=== PATIENT | male | born 1950 | race Caucasian/White ===

== ENCOUNTER 2019-05-31 08:31 | Inpatient (IN) | payer MEDICARE, MEDICAID ==
[2019-05-31] MEDS ORDERED: Nitroglycerin 0.4 MG Tab.SL SL SCH (12:45)
--- NOTE | 2019-05-31 13:00 | PCM.HP ---
H&P History of Present Illness - General Date of Service: 05/31/19 Admit Problem/Dx: Admission Diagnosis/Problem Admission Diagnosis/Problem Bacteremia Source of Information: Patient, Family History Limitations: Reports: No Limitations - History of Present Illness Initial Comments - Free Text/Narative: Nisreen is a 68-year-old male with past medical history significant for hypertension, supraventricular tachycardia, cardiomyopathy. He initially had an ablation for symptomatic atrial fibrillation on 05/05/2019 along with implantation of a loop recorder. He presented with not feeling well for 4 to 5 days with dry cough, subjective fevers,chills and sinus congestion. He also reported severe back pain. He was admitted with diagnosis of viral syndrome on 05/16/2019. He spiked a fever of 100.2 on 05/18/2019 after which he had blood cultures done. Blood cultures were 2 out of 2 sets positive for MSSA. He was started on cefazolin. TONY showed aortic valve vegetation. MRI of the thoracic spine showed osteomyelitis and discitis of T9-T10. Orthopedics evaluated patient and did right knee irrigation and sampling, and fluid showed staph aureus. Patient was transferred here to finish course of IV antibiotics. Patient's EF on his most recent echo 05/24/2019 was less than 25% with moderate AR. On interview, patient reported shortness of breath, he said that his lower extremity edema is new and he never had in the past. He said that his swelling is especially worse on the right side. He reports no nausea, vomiting, abdominal pain. - Related Data Allergies/Adverse Reactions: Allergies Allergy/AdvReac Type Severity Reaction Status Date / Time No Known Allergies Allergy Verified 05/31/19 10:10 Home Medications: Home Meds Acetaminophen 1,000 mg PO Q6HR 09/01/16 [History] Allopurinol [Zyloprim] 300 mg PO DAILY 09/01/16 [History] Simvastatin [Zocor] 20 mg PO BEDTIME 09/01/16 [History] Venlafaxine [Effexor XR] 150 mg PO BID 09/01/16 [History] traZODone HCl [Trazodone HCl] 100 mg PO BEDTIME 09/01/16 [History] Amiodarone [Cordarone] 200 mg PO DAILY 05/31/19 [History] Aspirin [Ecotrin EC] 325 mg PO DAILY 05/31/19 [History] Carvedilol [Coreg] 25 mg PO BID 05/31/19 [History] Furosemide [Lasix] 20 mg PO DAILY 05/31/19 [History] Losartan [Cozaar] 25 mg PO DAILY 05/31/19 [History] Nitroglycerin [Nitrostat] 0.3 mg SL ASDIRECTED 05/31/19 [History] Olopatadine [Pataday 0.2% Ophth Soln] 1 drop EYEBOTH DAILY 05/31/19 [History] Omeprazole 20 mg PO BID 05/31/19 [History] Spironolactone [Aldactone] 25 mg PO DAILY 05/31/19 [History] Warfarin Sodium [Jantoven] 5 mg PO DAILY 05/31/19 [History] diphenhydrAMINE [Benadryl] 25 mg PO DAILY PRN 05/31/19 [History] traMADol [Ultram] 50 mg PO BID PRN 05/31/19 [History] Past Medical History HEENT History: Reports: Impaired Vision Cardiovascular History: Reports: Arrhythmia, Heart Murmur, High Cholesterol, Hypertension, Other (See Below) Other Cardiovascular History: was told her needed to have a stress test 2017 but had not completed Respiratory History: Reports: None Gastrointestinal History: Reports: Bowel Obstruction Musculoskeletal History: Reports: Back Pain, Chronic, Other (See Below) Other Musculoskeletal History: lower back pain Psychiatric History: Reports: Anxiety, Depression Dermatologic History: Reports: Psoriasis - Infectious Disease History Infectious Disease History: Reports: Other (See Below) Other Infectious Disease History: MSSA - Past Surgical History GI Surgical History: Reports: None Social & Family History - Family History Family Medical History: Noncontributory - Tobacco Use Smoking Status *Q: Former Smoker Used Tobacco, but Quit: Yes Month/Year Tobacco Last Used: 1982 - Caffeine Use Caffeine Use: Reports: Soda - Recreational Drug Use Recreational Drug Use: No H&P Review of Systems - Review of Systems: Review Of Systems: See Below Pulmonary: Reports: Shortness of Breath. Denies: Wheezing, Cough Cardiovascular: Reports: Edema. Denies: Chest Pain, Palpitations Gastrointestinal: Reports: No Symptoms Skin: Reports: No Symptoms Psychiatric: Reports: No Symptoms Neurological: Reports: No Symptoms Exam - Exam Exam: See Below - Vital Signs Weight: 101.514 kg - Exam General: Alert, Oriented, Cooperative, Mild Distress HEENT: Conjunctiva Clear Neck: Supple Lungs: Clear to Auscultation, Decreased Breath Sounds Cardiovascular: Irregular Rhythm, Tachycardia GI/Abdominal Exam: Normal Bowel Sounds, Soft, Non-Tender Extremities: Other (Significant edema extending to upper thighs. Extremities are cool to touch) Skin: Intact, Cool Neuro Extensive - Mental Status: Alert, Normal Mood/Affect Psychiatric: Alert, Normal Affect, Normal Mood Problem List Initiated/Reviewed/Updated: Yes Orders Last 24hrs: Active Orders 24 hr Category Date Time Status Patient Status [ADT] Routine ADT 05/31/19 12:34 Ordered Oxygen Therapy [RC] PRN Care 05/31/19 12:34 Ordered VTE/DVT Education [RC] PER UNIT ROUTINE Care 05/31/19 12:34 Ordered Vital Signs [RC] QSHIFT Care 05/31/19 12:34 Ordered Heart Healthy Diet [DIET] Diet 05/31/19 Dinner Ordered BASIC METABOLIC PANEL,BMP [CHEM] DAILY Lab 05/31/19 12:49 Ordered BASIC METABOLIC PANEL,BMP [CHEM] DAILY Lab 06/01/19 12:49 Ordered BASIC METABOLIC PANEL,BMP [CHEM] DAILY Lab 06/02/19 12:49 Ordered BASIC METABOLIC PANEL,BMP [CHEM] DAILY Lab 06/03/19 12:49 Ordered BASIC METABOLIC PANEL,BMP [CHEM] DAILY Lab 06/04/19 12:49 Ordered BASIC METABOLIC PANEL,BMP [CHEM] DAILY Lab 06/05/19 12:49 Ordered BASIC METABOLIC PANEL,BMP [CHEM] DAILY Lab 06/06/19 12:49 Ordered Acetaminophen [Tylenol Extra Strength] Med 05/31/19 18:00 Ordered 1,000 mg PO Q6HR Amiodarone [Cordarone] Med 06/01/19 09:00 Ordered 200 mg PO DAILY Aspirin [Ecotrin] Med 06/01/19 09:00 Ordered 325 mg PO DAILY Bumetanide [Bumex] Med 05/31/19 14:00 Ordered 1 mg PO BIDDIURETIC Furosemide [Lasix] Med 06/01/19 09:00 Ordered 20 mg PO DAILY Losartan [Cozaar] Med 06/01/19 09:00 Ordered 25 mg PO DAILY Nitroglycerin Med 05/31/19 12:45 Ordered 0.3 mg SL ASDIRECTED Olopatadine [Pataday 0.2% Ophth Soln] Med 06/01/19 09:00 Ordered 1 drop EYEBOTH DAILY Omeprazole Med 05/31/19 21:00 Ordered 20 mg PO BID Simvastatin [Zocor] Med 05/31/19 21:00 Ordered 20 mg PO BEDTIME Spironolactone [Aldactone] Med 06/01/19 09:00 Ordered 25 mg PO DAILY Venlafaxine [Venlafaxine HCl ER] Med 05/31/19 21:00 Ordered 150 mg PO BID allopurinoL [Zyloprim] Med 06/01/19 09:00 Ordered 300 mg PO DAILY carvediloL [Coreg] Med 05/31/19 21:00 Ordered 25 mg PO BID traMADol [Ultram] Med 05/31/19 12:37 Ordered 50 mg PO BID PRN traZODone Med 05/31/19 21:00 Ordered 100 mg PO BEDTIME Resuscitation Status Routine Resus Stat 05/31/19 12:34 Ordered Medication Orders Acetaminophen (Tylenol Extra Strength) 1,000 mg PO Q6HR [facility] Allopurinol (Zyloprim) 300 mg PO DAILY [facility] Amiodarone HCl (Cordarone) 200 mg PO DAILY [facility] Aspirin (Ecotrin) 325 mg PO DAILY [facility] Carvedilol (Coreg) 25 mg PO BID [facility] Furosemide (Lasix) 20 mg PO DAILY [facility] Losartan Potassium (Cozaar) 25 mg PO DAILY [facility] Non-Formulary Medication (Nitroglycerin) 0.3 mg SL ASDIRECTED [facility] Non-Formulary Medication (Olopatadine [Pataday 0.2% Oph Soln]) 1 drop EYEBOTH DAILY [facility] Non-Formulary Medication (Simvastatin [Zocor]) 20 mg PO BEDTIME [facility] Omeprazole (Omeprazole) 20 mg PO BID [facility] Spironolactone (Aldactone) 25 mg PO DAILY [facility] Tramadol HCl (Ultram) 50 mg PO BID PRN PRN Reason: Pain (severe 7-10) Trazodone HCl (Trazodone) 100 mg PO BEDTIME [facility] Venlafaxine HCl (Venlafaxine Hcl Er) 150 mg PO BID [facility] Assessment/Plan Comment:: Sepsis from high grade MSSA bacteremia/bacterial endocarditis/right prepatellar bursa seeding/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 Acute Hypoxemic Respiratory Failure Most likely due to fluid overload See below Acute on chronic systolic CHF We will continue current home medications We will add Bumex 1 mg twice daily, may need to start patient on IV diuresis A fib with RVR Patient continues to be tachycardic We will give patient diuresis, heart rate may slow down with improved volume status Coumadin Hyponatremia Monitor labs daily Weakness PT OT DVT prophylaxis Coumadin
[2019-05-31 13:41] LABS: ANION GAP 13.1; CHLORIDE,CL 90 mmol/L (101-111); SODIUM,NA 126 mmol/L (135-145)
[2019-05-31] MEDS ORDERED: Bumetanide 1 MG Tab PO SCH (14:00)
[2019-05-31] MEDS: Furosemide 40 MG/4 ML VIAL IVPUSH SCH ×2 (15:02→20:32)
[2019-05-31] MEDS: traMADol 50 MG Tab PO PRN (15:07)
[2019-05-31] MEDS: ceFAZolin 2 GM in Premix Bag 1 BAG IV SCH ×2 (16:06→22:53)
[2019-05-31] MEDS: Carvedilol 25 MG Tab PO SCH (17:30)
[2019-05-31] MEDS: Acetaminophen 500 MG Tab PO SCH (17:31)
[2019-05-31] MEDS: Omeprazole 20 MG Cap.CR PO SCH (17:31)
[2019-05-31] MEDS: traZODone 50 MG Tab PO SCH (20:22)
[2019-05-31] MEDS: Venlafaxine 150 MG CAP.ER PO SCH (20:22)
[2019-05-31] MEDS: Simvastatin 10 MG Tab PO SCH (20:22)
[2019-06-01] MEDS: Acetaminophen 500 MG Tab PO SCH ×4 (00:43→17:50)
[2019-06-01] MEDS: ceFAZolin 2 GM in Premix Bag 1 BAG IV SCH ×3 (06:27→21:52)
[2019-06-01] MEDS: Omeprazole 20 MG Cap.CR PO SCH ×2 (06:28→15:32)
[2019-06-01 06:58] LABS: ANION GAP 12.6; CHLORIDE,CL 89 mmol/L (101-111); SODIUM,NA 127 mmol/L (135-145)
[2019-06-01] MEDS: traMADol 50 MG Tab PO PRN ×2 (07:05→21:47)
[2019-06-01] MEDS: Losartan 25 MG Tab PO SCH (08:27)
[2019-06-01] MEDS: Spironolactone 25 MG Tab PO SCH (08:27)
[2019-06-01] MEDS: Furosemide 20 MG Tab PO SCH (08:28)
[2019-06-01] MEDS: Venlafaxine 150 MG CAP.ER PO SCH ×2 (08:28→21:46)
[2019-06-01] MEDS: Allopurinol 300 MG Tab PO SCH (08:29)
[2019-06-01] MEDS: Carvedilol 25 MG Tab PO SCH ×2 (08:30→17:50)
[2019-06-01] MEDS: Aspirin 325 MG Tab.EC PO SCH (08:30)
[2019-06-01] MEDS: Furosemide 40 MG/4 ML VIAL IVPUSH SCH ×2 (08:31→21:48)
[2019-06-01] MEDS: Amiodarone 200 MG Tab PO SCH (08:31)
[2019-06-01] MEDS ORDERED: Enoxaparin 40 MG/0.4 ML Syringe SUBCUT SCH (09:00)
[2019-06-01] MEDS ORDERED: OLOPATADINE EYEBOTH SCH (09:00)
[2019-06-01] MEDS ORDERED: Potassium Chloride 10 MEQ Tab.ER PO ONE ×2 (09:43→12:00)
[2019-06-01] MEDS ORDERED: Warfarin 2 MG Tab PO ONE (14:00)
[2019-06-01] MEDS ORDERED: Benzocaine/Cetylpyridinium/Menthol Lozenge MUCMEM PRN (18:58)
[2019-06-01] MEDS: traZODone 50 MG Tab PO SCH (21:46)
[2019-06-01] MEDS: Simvastatin 10 MG Tab PO SCH (21:47)
[2019-06-02] MEDS: Acetaminophen 500 MG Tab PO SCH ×4 (00:19→17:43)
[2019-06-02] MEDS: traMADol 50 MG Tab PO PRN (05:55)
[2019-06-02] MEDS: Omeprazole 20 MG Cap.CR PO SCH ×2 (05:55→16:33)
[2019-06-02] MEDS: ceFAZolin 2 GM in Premix Bag 1 BAG IV SCH ×2 (05:56→14:52)
[2019-06-02 06:52] LABS: ANION GAP 10.8; CHLORIDE,CL 89 mmol/L (101-111); SODIUM,NA 127 mmol/L (135-145)
[2019-06-02] MEDS: Allopurinol 300 MG Tab PO SCH (09:10)
[2019-06-02] MEDS: Spironolactone 25 MG Tab PO SCH (09:11)
[2019-06-02] MEDS: Venlafaxine 150 MG CAP.ER PO SCH ×2 (09:11→21:01)
[2019-06-02] MEDS: Carvedilol 25 MG Tab PO SCH ×2 (09:11→17:43)
[2019-06-02] MEDS: Furosemide 20 MG Tab PO SCH (09:12)
[2019-06-02] MEDS: Aspirin 325 MG Tab.EC PO SCH (09:12)
[2019-06-02] MEDS: Losartan 25 MG Tab PO SCH (09:12)
[2019-06-02] MEDS: Amiodarone 200 MG Tab PO SCH (09:12)
[2019-06-02] MEDS: Furosemide 40 MG/4 ML VIAL IVPUSH SCH ×2 (09:13→21:00)
[2019-06-02] MEDS ORDERED: Warfarin 2.5 MG Tab PO ONE (14:00)
[2019-06-02] MEDS: Metolazone 2.5 MG Tab PO SCH (14:50)
[2019-06-02] MEDS: Sodium Chloride 0.9% 10 ML Syringe FLUSH PRN ×3 (15:44→17:45)
[2019-06-02] MEDS: Melatonin 3 MG Tab PO PRN (21:01)
[2019-06-02] MEDS: traZODone 50 MG Tab PO SCH (21:01)
[2019-06-03] MEDS: Acetaminophen 500 MG Tab PO SCH ×5 (00:18→23:29)
[2019-06-03] MEDS: Omeprazole 20 MG Cap.CR PO SCH ×2 (06:16→16:37)
[2019-06-03 06:43] LABS: ANION GAP 13.4; CHLORIDE,CL 86 mmol/L (101-111); SODIUM,NA 125 mmol/L (135-145)
[2019-06-03] MEDS: Furosemide 40 MG/4 ML VIAL IVPUSH SCH ×2 (09:10→21:01)
[2019-06-03] MEDS: Sodium Chloride 0.9% 10 ML Syringe FLUSH PRN (09:11)
[2019-06-03] MEDS: Carvedilol 25 MG Tab PO SCH ×2 (09:25→17:59)
[2019-06-03] MEDS: Metolazone 2.5 MG Tab PO SCH ×2 (09:26→13:32)
[2019-06-03] MEDS: Amiodarone 200 MG Tab PO SCH (09:26)
[2019-06-03] MEDS: Spironolactone 25 MG Tab PO SCH (09:26)
[2019-06-03] MEDS: Losartan 25 MG Tab PO SCH (09:27)
[2019-06-03] MEDS: Furosemide 20 MG Tab PO SCH (09:27)
[2019-06-03] MEDS: Aspirin 325 MG Tab.EC PO SCH (09:27)
[2019-06-03] MEDS: Venlafaxine 150 MG CAP.ER PO SCH ×2 (09:27→21:02)
[2019-06-03] MEDS: Allopurinol 300 MG Tab PO SCH (09:27)
[2019-06-03] MEDS ORDERED: Potassium Chloride 10 MEQ Tab.ER PO ONE (09:40)
[2019-06-03] MEDS: Menthol/Methyl Salicylate 85 GM Tube TOP PRN ×2 (13:43→17:09)
[2019-06-03] MEDS ORDERED: Warfarin 2 MG, Warfarin 1 MG PO ONE ×2 (14:00)
[2019-06-03] MEDS: Melatonin 3 MG Tab PO PRN (21:02)
[2019-06-03] MEDS: traMADol 50 MG Tab PO PRN (21:02)
[2019-06-03] MEDS: traZODone 50 MG Tab PO SCH (21:02)
[2019-06-04] MEDS: Acetaminophen 500 MG Tab PO SCH ×3 (05:52→18:01)
[2019-06-04] MEDS: Omeprazole 20 MG Cap.CR PO SCH ×2 (05:52→16:08)
[2019-06-04 06:58] LABS: ANION GAP 12.7
[2019-06-04] MEDS: Losartan 25 MG Tab PO SCH (09:12)
[2019-06-04] MEDS: Venlafaxine 150 MG CAP.ER PO SCH ×2 (09:12→20:44)
[2019-06-04] MEDS: Carvedilol 25 MG Tab PO SCH ×2 (09:13→18:00)
[2019-06-04] MEDS: Amiodarone 200 MG Tab PO SCH (09:13)
[2019-06-04] MEDS: Allopurinol 300 MG Tab PO SCH (09:13)
[2019-06-04] MEDS: Aspirin 325 MG Tab.EC PO SCH (09:13)
[2019-06-04] MEDS: Spironolactone 25 MG Tab PO SCH (09:13)
[2019-06-04] MEDS: Metolazone 2.5 MG Tab PO SCH ×2 (09:15→20:44)
[2019-06-04] MEDS: Furosemide 20 MG Tab PO SCH (09:15)
[2019-06-04] MEDS: Sodium Chloride 0.9% 10 ML Syringe FLUSH PRN ×5 (09:18→21:05)
[2019-06-04] MEDS: Furosemide 40 MG/4 ML VIAL IVPUSH SCH ×2 (09:18→20:51)
[2019-06-04] MEDS: Menthol/Methyl Salicylate 85 GM Tube TOP PRN (09:51)
[2019-06-04] MEDS ORDERED: Warfarin 1 MG, Warfarin 2 MG PO ONE ×2 (14:00)
[2019-06-04] MEDS: traZODone 50 MG Tab PO SCH (20:44)
[2019-06-04] MEDS: traMADol 50 MG Tab PO PRN (20:46)
[2019-06-05] MEDS: Acetaminophen 500 MG Tab PO SCH ×4 (01:42→17:16)
[2019-06-05] MEDS: Omeprazole 20 MG Cap.CR PO SCH ×2 (06:05→17:15)
[2019-06-05 06:48] LABS: ANION GAP 13.5
[2019-06-05] MEDS: Losartan 25 MG Tab PO SCH (08:18)
[2019-06-05] MEDS: Aspirin 325 MG Tab.EC PO SCH (08:18)
[2019-06-05] MEDS: Amiodarone 200 MG Tab PO SCH (08:18)
[2019-06-05] MEDS: Metolazone 2.5 MG Tab PO SCH ×2 (08:18→21:02)
[2019-06-05] MEDS: Allopurinol 300 MG Tab PO SCH (08:19)
[2019-06-05] MEDS: Spironolactone 25 MG Tab PO SCH (08:19)
[2019-06-05] MEDS: Carvedilol 25 MG Tab PO SCH ×2 (08:20→17:15)
[2019-06-05] MEDS: Venlafaxine 150 MG CAP.ER PO SCH ×2 (08:20→21:02)
[2019-06-05] MEDS: Furosemide 20 MG Tab PO SCH (08:20)
[2019-06-05] MEDS: Furosemide 40 MG/4 ML VIAL IVPUSH SCH ×2 (08:21→21:12)
[2019-06-05] MEDS: Sodium Chloride 0.9% 10 ML Syringe FLUSH PRN ×4 (08:25→21:26)
--- NOTE | 2019-06-05 09:23 | PCM.PN ---
- General Info Date of Service: 06/05/19 Admission Dx/Problem (Free Text): Admission Diagnosis/Problem Admission Diagnosis/Problem Bacteremia Subjective Update: Patient fluid status has improved significantly. He is complaining of poor appetite, and ulcers in his mouth. He continues to be on the IV Lasix and metolazone. Baseline creatinine is at 1, patient is currently at 1.4. Sheppard remains in place. - Review of Systems General: Reports: No Symptoms Pulmonary: Reports: No Symptoms Cardiovascular: Reports: No Symptoms Gastrointestinal: Reports: No Symptoms - Patient Data Vitals - Most Recent: Last Vital Signs Temp 36.7 C 06/05/19 07:43 Pulse 73 06/05/19 08:20 Resp 20 06/05/19 07:43 BP 127/63 06/05/19 08:20 Pulse Ox 90 L 06/05/19 07:43 Weight - Most Recent: 91.354 kg I&O - Last 24 Hours: Intake & Output 06/04/19 06/05/19 06/05/19 22:59 06:59 14:59 Intake Total 490 500 Output Total 1350 1400 Balance -860 -900 Lab Results Last 24 Hours: Laboratory Results - last 24 hr 06/05/19 06/05/19 Range/Units 05:55 05:55 PT 25.9 H (9.0-12.0) SEC INR 2.7 H (0.9-1.2) Sodium 127 L (135-145) mmol/L Potassium 3.5 L (3.6-5.0) mmol/L Chloride 86 L (101-111) mmol/L Carbon Dioxide 31.0 (21.0-31.0) mmol/L Anion Gap 13.5 BUN 34 H (7-18) mg/dL Creatinine 1.4 H (0.6-1.3) mg/dL Est Cr Clr Drug Dosing 52.14 mL/min Estimated GFR (MDRD) 50 Glucose 82 (74-105) mg/dL Calcium 7.8 L (8.4-10.2) mg/dl Med Orders - Current: Current Medications Acetaminophen (Tylenol Extra Strength) 1,000 mg PO Q6HR [facility] Last Admin: 06/05/19 06:05 Dose: 1,000 mg Allopurinol (Zyloprim) 300 mg PO DAILY [facility] Last Admin: 02/10/20 08:19 Dose: 300 mg Amiodarone HCl (Cordarone) 200 mg PO DAILY [facility] Last Admin: 06/05/19 08:18 Dose: 200 mg Aspirin (Ecotrin) 325 mg PO DAILY [facility] Last Admin: 06/05/19 08:18 Dose: 325 mg Benzocaine/Menthol (Cepacol Sore Throat) 1 lozenge MUCMEM TID PRN PRN Reason: Sore Throat Carvedilol (Coreg) 25 mg PO BIDMEALS [facility] Last Admin: 06/05/19 08:20 Dose: 25 mg Furosemide (Lasix) 20 mg PO DAILY [facility] Last Admin: 06/05/19 08:20 Dose: 20 mg Furosemide (Lasix) 80 mg IVPUSH BID [facility] Last Admin: 06/05/19 08:21 Dose: 80 mg Daptomycin 790 mg/ Sodium (Chloride) 50 mls @ 100 mls/hr IV DAILY [facility] Last Infusion: 06/04/19 10:17 Dose: Infused Losartan Potassium (Cozaar) 25 mg PO DAILY [facility] Last Admin: 06/05/19 08:18 Dose: 25 mg Melatonin (Melatonin) 3 mg PO BEDTIME PRN PRN Reason: Sleep Last Admin: 06/03/19 21:02 Dose: 3 mg Methyl Salicylate (Icy Hot Cream) 0 gm TOP QID PRN PRN Reason: Pain (mild 1-3) Last Admin: 06/04/19 09:51 Dose: 1 applic Metolazone (Zaroxolyn) 2.5 mg PO BID@0800,2000 [facility] Last Admin: 06/05/19 08:18 Dose: 2.5 mg Nitroglycerin (Nitrostat) 0.4 mg SL ASDIRECTED [facility] Omeprazole (Omeprazole) 20 mg PO BIDAC [facility] Last Admin: 06/05/19 06:05 Dose: 20 mg Potassium Chloride (Klor-Con 10) 40 meq PO ONETIME ONE Stop: 06/05/19 09:13 Sodium Chloride (Saline Flush) 10 ml FLUSH ASDIRECTED PRN PRN Reason: Keep Vein Open Last Admin: 06/05/19 08:25 Dose: 10 ml Spironolactone (Aldactone) 25 mg PO DAILY [facility] Last Admin: 06/05/19 08:19 Dose: 25 mg Tramadol HCl (Ultram) 50 mg PO BID PRN PRN Reason: Pain (severe 7-10) Last Admin: 06/04/19 20:46 Dose: 50 mg Trazodone HCl (Trazodone) 100 mg PO BEDTIME [facility] Last Admin: 06/04/19 20:44 Dose: 100 mg Venlafaxine HCl (Venlafaxine Hcl Er) 150 mg PO BID [facility] Last Admin: 06/05/19 08:20 Dose: 150 mg Warfarin Sodium (Pharmacy To Dose - Warfarin) 1 dose .XX ASDIRECTED [facility] Discontinued Medications Bumetanide (Bumex) 1 mg PO BIDDIURETIC [facility] Enoxaparin Sodium (Lovenox) 40 mg SUBCUT DAILY [facility] Cefazolin Sodium/Dextrose 2 gm (/ Premix) 50 mls @ 100 mls/hr IV Q8HR [facility] Last Infusion: 06/02/19 15:43 Dose: Infused Metolazone (Zaroxolyn) 2.5 mg PO BIDDIURETIC [facility] Last Admin: 06/03/19 13:32 Dose: 2.5 mg Non-Formulary Medication (Olopatadine [Pataday 0.2% [facility]]) 1 drop EYEBOTH DAILY [facility] Potassium Chloride (Klor-Con 10) 40 meq PO ONETIME ONE Stop: 06/01/19 12:01 Last Admin: 06/01/19 12:05 Dose: 40 meq Potassium Chloride (Klor-Con 10) 40 meq PO ONETIME ONE Stop: 06/03/19 09:41 Last Admin: 06/03/19 10:11 Dose: 40 meq Simvastatin (Zocor) 20 mg PO BEDTIME [facility] Last Admin: 06/01/19 21:47 Dose: 20 mg Warfarin Sodium (Coumadin) 1 mg PO ONETIME ONE Stop: 05/31/19 14:01 Last Admin: 05/31/19 15:02 Dose: 1 mg Warfarin Sodium (Coumadin) 2 mg PO ONETIME ONE Stop: 06/01/19 14:01 Last Admin: 06/01/19 15:32 Dose: 2 mg Warfarin Sodium (Coumadin) 2.5 mg PO ONETIME ONE Stop: 06/02/19 14:01 Last Admin: 06/02/19 14:50 Dose: 2.5 mg Warfarin Sodium 2 mg/ Warfarin (Sodium 1 mg) 3 mg PO ONETIME ONE Stop: 06/03/19 14:01 Last Admin: 06/03/19 13:33 Dose: 3 mg Warfarin Sodium 1 mg/ Warfarin (Sodium 2 mg) 3 mg PO ONETIME ONE Stop: 06/04/19 14:01 Last Admin: 06/04/19 14:47 Dose: 3 mg - Exam General: Alert, Oriented Lungs: Clear to Auscultation, Normal Respiratory Effort Cardiovascular: Regular Rate, Regular Rhythm GI/Abdominal Exam: Normal Bowel Sounds, Soft, Non-Tender Extremities: Other (Edema bilateral lower extremities, improved significantly, but continues to have +2 +3 edema extending to mid thighs) Skin: Warm, Intact, Rash (Vasculitic rash) Neurological: No New Focal Deficit Psy/Mental Status: Alert, Normal Affect, Normal Mood Sepsis Event Note - Evaluation Sepsis Screening Result: No Definite Risk - Focused Exam Vital Signs: Vital Signs Temp Pulse Pulse Resp BP BP Pulse Ox 06/05/19 08:20 73 127/63 06/05/19 08:18 127/63 06/05/19 07:43 36.7 C 61 20 127/63 90 L Date Exam was Performed: 06/05/19 Time Exam was Performed: 10:35 - Problem List Review Problem List Initiated/Reviewed/Updated: Yes - My Orders Last 24 Hours: My Active Orders 06/05/19 09:12 Potassium Chloride [Klor-Con 10] 40 meq PO ONETIME ONE 06/06/19 06:00 ALANINE AMINOTRANSFERASE,ALT [CHEM] Routine CBC WITH AUTO DIFF [HEME] Routine CREATININE CLEARANCE [LAB] Routine CRP [C-REACTIVE PROTEIN] [CHEM] Routine SEDIMENTATION RATE MANUAL [HEME] Routine 06/06/19 10:03 INR,PT,PROTHROMBIN TIME [COAG] DAILY 06/06/19 12:49 BASIC METABOLIC PANEL,BMP [CHEM] DAILY 06/07/19 10:03 INR,PT,PROTHROMBIN TIME [COAG] DAILY - Plan Plan:: Sepsis from high grade MSSA bacteremia/bacterial endocarditis/right prepatellar bursa seeding/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
[2019-06-05] MEDS ORDERED: Potassium Chloride 10 MEQ Tab.ER PO ONE (09:30)
[2019-06-05] MEDS: traMADol 50 MG Tab PO PRN ×2 (12:33→21:07)
[2019-06-05] MEDS ORDERED: ALUM HYDROX PO PRN ×3 (12:41)
[2019-06-05] MEDS ORDERED: LIDOCAINE 2% PO PRN ×3 (12:41)
[2019-06-05] MEDS ORDERED: DIPHENHYDRAMINE PO PRN ×3 (12:41)
[2019-06-05] MEDS ORDERED: MAG HYDROX PO PRN ×3 (12:41)
[2019-06-05] MEDS ORDERED: SIMETH PO PRN ×3 (12:41)
[2019-06-05] MEDS ORDERED: Warfarin 2 MG Tab PO ONE (14:00)
[2019-06-05] MEDS: traZODone 50 MG Tab PO SCH (21:02)
[2019-06-06] MEDS: Acetaminophen 500 MG Tab PO SCH ×4 (01:07→17:16)
[2019-06-06] MEDS: traMADol 50 MG Tab PO PRN (04:48)
[2019-06-06] MEDS: Omeprazole 20 MG Cap.CR PO SCH ×2 (05:09→17:16)
[2019-06-06] MEDS: Furosemide 40 MG/4 ML VIAL IVPUSH SCH (08:16)
[2019-06-06] MEDS: Sodium Chloride 0.9% 10 ML Syringe FLUSH PRN ×3 (08:16→11:01)
[2019-06-06] MEDS: Carvedilol 25 MG Tab PO SCH ×2 (08:17→17:16)
[2019-06-06] MEDS: Aspirin 325 MG Tab.EC PO SCH (08:17)
[2019-06-06] MEDS: Furosemide 20 MG Tab PO SCH (08:17)
[2019-06-06] MEDS: Allopurinol 300 MG Tab PO SCH (08:17)
[2019-06-06] MEDS: Losartan 25 MG Tab PO SCH (08:18)
[2019-06-06] MEDS: Metolazone 2.5 MG Tab PO SCH ×2 (08:18→20:43)
[2019-06-06] MEDS: Spironolactone 25 MG Tab PO SCH (08:18)
[2019-06-06] MEDS: Amiodarone 200 MG Tab PO SCH (08:18)
[2019-06-06] MEDS: Venlafaxine 150 MG CAP.ER PO SCH ×2 (08:18→20:43)
[2019-06-06] MEDS ORDERED: methylPREDNISolone Sod Succ 125 MG in Sodium Chloride 0.9% 100 ML IV ONE (10:21)
[2019-06-06] MEDS ORDERED: methylPREDNISolone Sodium Succinate 125 MG/2 ML SDV IVPUSH ONE (10:30)
[2019-06-06] MEDS: oxyCODONE 5 MG Tab PO PRN ×2 (11:02→20:44)
[2019-06-06 13:26] LABS: ANION GAP 13.7
[2019-06-06] MEDS ORDERED: Warfarin 2.5 MG Tab PO ONE (14:00)
--- NOTE | 2019-06-06 15:57 | PCM.PN ---
- General Info Date of Service: 06/06/19 Admission Dx/Problem (Free Text): Admission Diagnosis/Problem Admission Diagnosis/Problem Bacteremia Subjective Update: patient feels significantly worse today and had severe foot pain. on evaluation , patient had worsening vasculitic rash with associated bilateral ankle swelling. discussed case with Dr. Simon and she is in agreement with transferring patient for further evaluation and workup of vasculitis at [facility] and potentially obtaining skin/kidney biospy. spoke with Dr. Kim who was in agreement with starting steroids for patient. - Patient Data Vitals - Most Recent: Last Vital Signs Temp 36.7 C 06/06/19 07:43 Pulse 63 06/06/19 08:17 Resp 20 06/06/19 07:43 BP 121/69 06/06/19 08:18 Pulse Ox 96 06/06/19 12:00 Weight - Most Recent: 91.354 kg I&O - Last 24 Hours: Intake & Output 06/06/19 06/06/19 06/06/19 06:59 14:59 22:59 Intake Total 500 326 Output Total 675 1300 Balance -175 -974 Lab Results Last 24 Hours: Laboratory Results - last 24 hr 06/06/19 06/06/19 06/06/19 Range/Units 06:05 06:05 06:05 WBC 3.9 L (5.0-10.0) 10^3/uL RBC 3.07 L (4.6-6.2) 10^6/uL Hgb 9.5 L D (14.0-18.0) g/dL Hct 29.2 L (40.0-54.0) % MCV 95.1 D (80-100) fL MCH 30.9 (27.0-34.0) pg MCHC 32.5 L (33.0-35.0) g/dL Plt Count 276 D (150-450) 10^3/uL Neut % (Auto) 79.2 H (42.2-75.2) % Lymph % (Auto) 10.5 L (20.5-50.1) % [place] % (Auto) 7.7 (2-8) % Eos % (Auto) 2.3 (1.0-3.0) % Baso % (Auto) 0.3 (0.0-1.0) % ESR 89 H (0-15) mm/hr PT 23.6 H (9.0-12.0) SEC INR 2.4 H (0.9-1.2) Sodium (135-145) mmol/L Potassium (3.6-5.0) mmol/L Chloride (101-111) mmol/L Carbon Dioxide (21.0-31.0) mmol/L Anion Gap BUN (7-18) mg/dL Creatinine 1.6 H (0.6-1.3) mg/dL Est Cr Clr Drug Dosing mL/min Estimated GFR (MDRD) Glucose (74-105) mg/dL Calcium (8.4-10.2) mg/dl ALT 15 (10-60) IU/L C-Reactive Protein (0.0-1.3) mg/dL 06/06/19 06/06/19 Range/Units 06:05 12:55 WBC (5.0-10.0) 10^3/uL RBC (4.6-6.2) 10^6/uL Hgb (14.0-18.0) g/dL Hct (40.0-54.0) % MCV (80-100) fL MCH (27.0-34.0) pg MCHC (33.0-35.0) g/dL Plt Count (150-450) 10^3/uL Neut % (Auto) (42.2-75.2) % Lymph % (Auto) (20.5-50.1) % [place] % (Auto) (2-8) % Eos % (Auto) (1.0-3.0) % Baso % (Auto) (0.0-1.0) % ESR (0-15) mm/hr PT (9.0-12.0) SEC INR (0.9-1.2) Sodium 125 L (135-145) mmol/L Potassium 3.7 (3.6-5.0) mmol/L Chloride 84 L (101-111) mmol/L Carbon Dioxide 31.0 (21.0-31.0) mmol/L Anion Gap 13.7 BUN 38 H (7-18) mg/dL Creatinine 1.5 H (0.6-1.3) mg/dL Est Cr Clr Drug Dosing 48.67 mL/min Estimated GFR (MDRD) 47 Glucose 97 (74-105) mg/dL Calcium 7.8 L (8.4-10.2) mg/dl ALT (10-60) IU/L C-Reactive Protein 17.7 H (0.0-1.3) mg/dL Med Orders - Current: Current Medications Acetaminophen (Tylenol Extra Strength) 1,000 mg PO Q6HR [facility] Last Admin: 06/06/19 11:01 Dose: 1,000 mg Allopurinol (Zyloprim) 300 mg PO DAILY [facility] Last Admin: 06/06/19 08:17 Dose: 300 mg Amiodarone HCl (Cordarone) 200 mg PO DAILY [facility] Last Admin: 06/06/19 08:18 Dose: 200 mg Aspirin (Ecotrin) 325 mg PO DAILY [facility] Last Admin: 06/06/19 08:17 Dose: 325 mg Benzocaine/Menthol (Cepacol Sore Throat) 1 lozenge MUCMEM TID PRN PRN Reason: Sore Throat Carvedilol (Coreg) 25 mg PO BIDMEALS [facility] Last Admin: 06/06/19 08:17 Dose: 25 mg Lidocaine HCl 30 ml/ Al Hydroxide/Mg Hydroxide 30 ml/Diphenhydramine HCl 30 mg 0 ml PO Q4H PRN PRN Reason: MOUTH SORES Last Admin: 06/05/19 21:36 Dose: 5 ml Daptomycin 790 mg/ Sodium (Chloride) 50 mls @ 100 mls/hr IV DAILY [facility] Last Admin: 06/06/19 09:53 Dose: 100 mls/hr Losartan Potassium (Cozaar) 25 mg PO DAILY [facility] Last Admin: 06/06/19 08:18 Dose: 25 mg Melatonin (Melatonin) 3 mg PO BEDTIME PRN PRN Reason: Sleep Last Admin: 06/03/19 21:02 Dose: 3 mg Methyl Salicylate (Icy Hot Cream) 0 gm TOP QID PRN PRN Reason: Pain (mild 1-3) Last Admin: 06/04/19 09:51 Dose: 1 applic Metolazone (Zaroxolyn) 2.5 mg PO BID@0800,1999 [facility] Last Admin: 06/06/19 08:18 Dose: 2.5 mg Nitroglycerin (Nitrostat) 0.4 mg SL ASDIRECTED [facility] Omeprazole (Omeprazole) 20 mg PO BIDAC [facility] Last Admin: 06/06/19 05:09 Dose: 20 mg Oxycodone HCl (Oxycodone) 5 mg PO Q4H PRN PRN Reason: Pain (severe 7-10) Last Admin: 06/06/19 11:02 Dose: 5 mg Sodium Chloride (Saline Flush) 10 ml FLUSH ASDIRECTED PRN PRN Reason: Keep Vein Open Last Admin: 06/06/19 11:01 Dose: 10 ml Spironolactone (Aldactone) 25 mg PO DAILY [facility] Last Admin: 06/06/19 08:18 Dose: 25 mg Tramadol HCl (Ultram) 50 mg PO BID PRN PRN Reason: Pain (severe 7-10) Last Admin: 06/06/19 04:48 Dose: 50 mg Trazodone HCl (Trazodone) 100 mg PO BEDTIME [facility] Last Admin: 06/05/19 21:02 Dose: 100 mg Venlafaxine HCl (Venlafaxine Hcl Er) 150 mg PO BID [facility] Last Admin: 06/06/19 08:18 Dose: 150 mg Warfarin Sodium (Pharmacy To Dose - Warfarin) 1 dose .XX ASDIRECTED [facility] Discontinued Medications Bumetanide (Bumex) 1 mg PO BIDDIURETIC [facility] Enoxaparin Sodium (Lovenox) 40 mg SUBCUT DAILY [facility] Furosemide (Lasix) 20 mg PO DAILY [facility] Last Admin: 06/06/19 08:17 Dose: 20 mg Furosemide (Lasix) 80 mg IVPUSH BID [facility] Last Admin: 06/06/19 08:16 Dose: 80 mg Cefazolin Sodium/Dextrose 2 gm (/ Premix) 50 mls @ 100 mls/hr IV Q8HR [facility] Last Infusion: 06/02/19 15:43 Dose: Infused Methylprednisolone Sodium Succinate (Solu-Medrol) 125 mg IVPUSH ONETIME ONE Stop: 06/06/19 10:31 Last Admin: 06/06/19 11:01 Dose: 125 mg Metolazone (Zaroxolyn) 2.5 mg PO BIDDIURETIC [facility] Last Admin: 06/03/19 13:32 Dose: 2.5 mg Non-Formulary Medication (Olopatadine [Pataday 0.2% Ophth Soln]) 1 drop EYEBOTH DAILY [facility] Potassium Chloride (Klor-Con 10) 40 meq PO ONETIME ONE Stop: 06/01/19 12:01 Last Admin: 06/01/19 12:05 Dose: 40 meq Potassium Chloride (Klor-Con 10) 40 meq PO ONETIME ONE Stop: 06/03/19 09:41 Last Admin: 06/03/19 10:11 Dose: 40 meq Potassium Chloride (Klor-Con 10) 40 meq PO ONETIME ONE Stop: 06/05/19 09:31 Last Admin: 06/05/19 10:14 Dose: 40 meq Simvastatin (Zocor) 20 mg PO BEDTIME [facility] Last Admin: 06/01/19 21:47 Dose: 20 mg Warfarin Sodium (Coumadin) 1 mg PO ONETIME ONE Stop: 05/31/19 14:01 Last Admin: 05/31/19 15:02 Dose: 1 mg Warfarin Sodium (Coumadin) 2 mg PO ONETIME ONE Stop: 06/01/19 14:01 Last Admin: 06/01/19 15:32 Dose: 2 mg Warfarin Sodium (Coumadin) 2.5 mg PO ONETIME ONE Stop: 06/02/19 14:01 Last Admin: 06/02/19 14:50 Dose: 2.5 mg Warfarin Sodium 2 mg/ Warfarin (Sodium 1 mg) 3 mg PO ONETIME ONE Stop: 06/03/19 14:01 Last Admin: 06/03/19 13:33 Dose: 3 mg Warfarin Sodium 1 mg/ Warfarin (Sodium 2 mg) 3 mg PO ONETIME ONE Stop: 06/04/19 14:01 Last Admin: 06/04/19 14:47 Dose: 3 mg Warfarin Sodium (Coumadin) 2 mg PO ONETIME ONE Stop: 06/05/19 14:01 Last Admin: 06/05/19 14:30 Dose: 2 mg Warfarin Sodium (Coumadin) 2.5 mg PO ONETIME ONE Stop: 06/06/19 14:01 Last Admin: 06/06/19 14:17 Dose: 2.5 mg - Exam General: Alert, Oriented Lungs: Clear to Auscultation Cardiovascular: Regular Rate, Regular Rhythm Back Exam: Other (vasculitic rash on the lower back) Extremities: Pedal Edema Skin: Rash (vasculitic rash, palpable purpura diffusely affecting both feet, behind left knee, upper arms and lower back, significantly worse compared with the past few days.) Neurological: No New Focal Deficit Psy/Mental Status: Alert, Normal Affect, Normal Mood Sepsis Event Note - Evaluation Sepsis Screening Result: No Definite Risk - Focused Exam Vital Signs: Vital Signs Temp Pulse Pulse Resp BP BP Pulse Ox 06/06/19 12:00 06/06/19 08:18 121/69 06/06/19 08:17 63 121/69 06/06/19 07:43 36.7 C 63 20 121/69 96 Pulse Ox 06/06/19 12:00 96 06/06/19 08:18 06/06/19 08:17 06/06/19 07:43 Date Exam was Performed: 06/06/19 Time Exam was Performed: 15:52 - Problem List Review Problem List Initiated/Reviewed/Updated: Yes - My Orders Last 24 Hours: My Active Orders 06/06/19 06:05 CREATININE CLEARANCE [LAB] Routine 06/06/19 10:25 oxyCODONE 5 mg PO Q4H PRN 06/07/19 10:03 INR,PT,PROTHROMBIN TIME [COAG] DAILY - Plan Plan:: Sepsis from high grade MSSA bacteremia/bacterial endocarditis/right prepatellar bursa seeding/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 Acute Hypoxemic Respiratory Failure Most likely due to fluid overload Resolved Acute on chronic systolic CHF hold lasix as above Hypokalemia replete A fib with RVR Resolved Continue current management Hyponatremia Monitor labs daily Weakness PT OT DVT prophylaxis Coumadin
[2019-06-06] MEDS: traZODone 50 MG Tab PO SCH (20:43)
[2019-06-07] MEDS: Acetaminophen 500 MG Tab PO SCH ×4 (01:14→17:39)
[2019-06-07] MEDS: Omeprazole 20 MG Cap.CR PO SCH ×2 (06:23→17:39)
[2019-06-07] MEDS: oxyCODONE 5 MG Tab PO PRN (06:25)
[2019-06-07 08:08] VITALS: BP 126/68
[2019-06-07] MEDS: Spironolactone 25 MG Tab PO SCH (09:07)
[2019-06-07] MEDS: Losartan 25 MG Tab PO SCH (09:07)
[2019-06-07] MEDS: Allopurinol 300 MG Tab PO SCH (09:07)
[2019-06-07] MEDS: Aspirin 325 MG Tab.EC PO SCH (09:07)
[2019-06-07] MEDS: Venlafaxine 150 MG CAP.ER PO SCH (09:07)
[2019-06-07] MEDS: Carvedilol 25 MG Tab PO SCH ×2 (09:08→17:39)
[2019-06-07] MEDS: Amiodarone 200 MG Tab PO SCH (09:08)
[2019-06-07] MEDS: Metolazone 2.5 MG Tab PO SCH (09:08)
[2019-06-07] MEDS: Sodium Chloride 0.9% 10 ML Syringe FLUSH PRN (10:35)
[2019-06-07] MEDS ORDERED: Warfarin 2 MG Tab PO ONE (14:00)
[2019-06-07 17:41] VITALS: PULSE 62
--- NOTE | 2019-06-07 17:50 | PCM.DCSUM1 ---
Discharge Summary - Hospital Course Free Text/Narrative:: Nisreen is a 68-year-old male with past medical history significant for hypertension, supraventricular tachycardia, cardiomyopathy. He initially had an ablation for symptomatic atrial fibrillation on 05/05/2019 along with implantation of a loop recorder. He presented with not feeling well for 4 to 5 days with dry cough, subjective fevers,chills and sinus congestion. He also reported severe back pain. He was admitted with diagnosis of viral syndrome on 05/16/2019. He spiked a fever of 100.2 on 05/18/2019 after which he had blood cultures done. Blood cultures were 2 out of 2 sets positive for MSSA. He was started on cefazolin. TONY showed aortic valve vegetation. MRI of the thoracic spine showed osteomyelitis and discitis of T9-T10. Orthopedics evaluated patient and did right knee irrigation and sampling, and fluid showed staph aureus. Patient was transferred here to finish course of IV antibiotics. [facility] has been complicated by worsening of vasculitic rash with associated bilateral ankle swelling. His creatinine started to trend up. Ancef was d/c. Lasix was also held. Patient was discussed with VICKY Platt and inside sales advisor Dr. Kim who agreed patient be transferred back to [facility] for further evaluation. Patient was started on steroid. Diagnosis: Stroke: No - Discharge Data Discharge Date: 06/07/19 Discharge Disposition: DC/Tfer to Acute Hospital 02 Condition: Good - Referral to Home Health Primary Care Physician: Mayra Levy NP - Patient Summary/Data Consults: Consultations 05/31/19 15:22 OT Evaluation and Treatment [CONS] Routine PT Evaluation and Treatment [CONS] Routine - Patient Instructions Diet: Heart Healthy Diet Activity: As Tolerated - Discharge Plan *PRESCRIPTION DRUG MONITORING PROGRAM REVIEWED*: Not Applicable *COPY OF PRESCRIPTION DRUG MONITORING REPORT IN PATIENT STEPHANIE: Not Applicable Home Medications: Home Meds Acetaminophen 1,000 mg PO Q6HR 09/01/16 [History] Allopurinol [Zyloprim] 300 mg PO DAILY 09/01/16 [History] Simvastatin [Zocor] 20 mg PO BEDTIME 09/01/16 [History] Venlafaxine [Effexor XR] 150 mg PO BID 09/01/16 [History] traZODone HCl [Trazodone HCl] 100 mg PO BEDTIME 09/01/16 [History] Amiodarone [Cordarone] 200 mg PO DAILY 05/31/19 [History] Aspirin [Ecotrin EC] 325 mg PO DAILY 05/31/19 [History] Carvedilol [Coreg] 25 mg PO BID 05/31/19 [History] Furosemide [Lasix] 20 mg PO DAILY 05/31/19 [History] Losartan [Cozaar] 25 mg PO DAILY 05/31/19 [History] Nitroglycerin [Nitrostat] 0.3 mg SL ASDIRECTED 05/31/19 [History] Olopatadine [Pataday 0.2% Ophth Soln] 1 drop EYEBOTH DAILY 05/31/19 [History] Omeprazole 20 mg PO BID 05/31/19 [History] Spironolactone [Aldactone] 25 mg PO DAILY 05/31/19 [History] Warfarin Sodium [Jantoven] 5 mg PO DAILY 05/31/19 [History] diphenhydrAMINE [Benadryl] 25 mg PO DAILY PRN 05/31/19 [History] traMADol [Ultram] 50 mg PO BID PRN 05/31/19 [History] Oxygen Therapy Mode: Room Air - Discharge Summary/Plan Comment DC Time >30 min.: Yes - Patient Data Vitals - Most Recent: Last Vital Signs Temp 96.8 F L 06/07/19 08:00 Pulse 62 06/07/19 17:39 Resp 18 06/07/19 08:00 BP 126/68 06/07/19 17:39 Pulse Ox 91 L 06/07/19 12:00 Weight - Most Recent: 198 lb 3.2 oz I&O - Last 24 hours: Intake & Output 06/07/19 06/07/19 06/07/19 06:59 14:59 22:59 Intake Total 50 1129 200 Output Total 350 450 Balance -300 1129 -250 Lab Results - Last 24 hrs: Laboratory Results - last 24 hr 06/07/19 Range/Units 06:10 PT 27.9 H (9.0-12.0) SEC INR 2.9 H (0.9-1.2) Med Orders - Current: Current Medications Acetaminophen (Tylenol Extra Strength) 1,000 mg PO Q6HR [facility] Last Admin: 06/07/19 17:39 Dose: 1,000 mg Allopurinol (Zyloprim) 300 mg PO DAILY [facility] Last Admin: 06/07/19 09:07 Dose: 300 mg Amiodarone HCl (Cordarone) 200 mg PO DAILY [facility] Last Admin: 06/07/19 09:08 Dose: 200 mg Aspirin (Ecotrin) 325 mg PO DAILY [facility] Last Admin: 06/07/19 09:07 Dose: 325 mg Benzocaine/Menthol (Cepacol Sore Throat) 1 lozenge MUCMEM TID PRN PRN Reason: Sore Throat Carvedilol (Coreg) 25 mg PO BIDMEALS [facility] Last Admin: 06/07/19 17:39 Dose: 25 mg Lidocaine HCl 30 ml/ Al Hydroxide/Mg Hydroxide 30 ml/Diphenhydramine HCl 30 mg 0 ml PO Q4H PRN PRN Reason: MOUTH SORES Last Admin: 06/05/19 21:36 Dose: 5 ml Daptomycin 790 mg/ Sodium (Chloride) 50 mls @ 100 mls/hr IV DAILY [facility] Last Infusion: 06/07/19 11:14 Dose: Infused Losartan Potassium (Cozaar) 25 mg PO DAILY [facility] Last Admin: 06/07/19 09:07 Dose: 25 mg Melatonin (Melatonin) 3 mg PO BEDTIME PRN PRN Reason: Sleep Last Admin: 06/03/19 21:02 Dose: 3 mg Methyl Salicylate (Icy Hot Cream) 0 gm TOP QID PRN PRN Reason: Pain (mild 1-3) Last Admin: 06/04/19 09:51 Dose: 1 applic Metolazone (Zaroxolyn) 2.5 mg PO BID@0800,2000 [facility] Last Admin: 06/07/19 09:08 Dose: 2.5 mg Nitroglycerin (Nitrostat) 0.4 mg SL ASDIRECTED [facility] Omeprazole (Omeprazole) 20 mg PO BIDAC [facility] Last Admin: 06/07/19 17:39 Dose: 20 mg Oxycodone HCl (Oxycodone) 5 mg PO Q4H PRN PRN Reason: Pain (severe 7-10) Last Admin: 06/07/19 06:25 Dose: 5 mg Prednisone (Prednisone) 40 mg PO WITHBREAKFAST [facility] Senna/Docusate Sodium (Senna Plus) 1 tab PO BID PRN PRN Reason: Constipation Last Admin: 06/06/19 20:44 Dose: 1 tab Sodium Chloride (Saline Flush) 10 ml FLUSH ASDIRECTED PRN PRN Reason: Keep Vein Open Last Admin: 06/07/19 10:35 Dose: 10 ml Spironolactone (Aldactone) 25 mg PO DAILY [facility] Last Admin: 06/07/19 09:07 Dose: 25 mg Tramadol HCl (Ultram) 50 mg PO BID PRN PRN Reason: Pain (severe 7-10) Last Admin: 06/06/19 04:48 Dose: 50 mg Trazodone HCl (Trazodone) 100 mg PO BEDTIME [facility] Last Admin: 06/06/19 20:43 Dose: 100 mg Venlafaxine HCl (Venlafaxine Hcl Er) 150 mg PO BID [facility] Last Admin: 06/07/19 09:07 Dose: 150 mg Warfarin Sodium (Pharmacy To Dose - Warfarin) 1 dose .XX ASDIRECTED [facility] Discontinued Medications Bumetanide (Bumex) 1 mg PO BIDDIURETIC [facility] Enoxaparin Sodium (Lovenox) 40 mg SUBCUT DAILY [facility] Furosemide (Lasix) 20 mg PO DAILY [facility] Last Admin: 06/06/19 08:17 Dose: 20 mg Furosemide (Lasix) 80 mg IVPUSH BID [facility] Last Admin: 06/06/19 08:16 Dose: 80 mg Cefazolin Sodium/Dextrose 2 gm (/ Premix) 50 mls @ 100 mls/hr IV Q8HR [facility] Last Infusion: 06/02/19 15:43 Dose: Infused Methylprednisolone Sodium Succinate (Solu-Medrol) 125 mg IVPUSH ONETIME ONE Stop: 06/06/19 10:31 Last Admin: 06/06/19 11:01 Dose: 125 mg Metolazone (Zaroxolyn) 2.5 mg PO BIDDIURETIC [facility] Last Admin: 06/03/19 13:32 Dose: 2.5 mg Non-Formulary Medication (Olopatadine [Pataday 0.2% [facility]]) 1 drop EYEBOTH DAILY [facility] Potassium Chloride (Klor-Con 10) 40 meq PO ONETIME ONE Stop: 06/01/19 12:01 Last Admin: 06/01/19 12:05 Dose: 40 meq Potassium Chloride (Klor-Con 10) 40 meq PO ONETIME ONE Stop: 06/03/19 09:41 Last Admin: 06/03/19 10:11 Dose: 40 meq Potassium Chloride (Klor-Con 10) 40 meq PO ONETIME ONE Stop: 06/05/19 09:31 Last Admin: 06/05/19 10:14 Dose: 40 meq Simvastatin (Zocor) 20 mg PO BEDTIME [facility] Last Admin: 06/01/19 21:47 Dose: 20 mg Warfarin Sodium (Coumadin) 1 mg PO ONETIME ONE Stop: 05/31/19 14:01 Last Admin: 05/31/19 15:02 Dose: 1 mg Warfarin Sodium (Coumadin) 2 mg PO ONETIME ONE Stop: 06/01/19 14:01 Last Admin: 06/01/19 15:32 Dose: 2 mg Warfarin Sodium (Coumadin) 2.5 mg PO ONETIME ONE Stop: 06/02/19 14:01 Last Admin: 06/02/19 14:50 Dose: 2.5 mg Warfarin Sodium 2 mg/ Warfarin (Sodium 1 mg) 3 mg PO ONETIME ONE Stop: 06/03/19 14:01 Last Admin: 06/03/19 13:33 Dose: 3 mg Warfarin Sodium 1 mg/ Warfarin (Sodium 2 mg) 3 mg PO ONETIME ONE Stop: 06/04/19 14:01 Last Admin: 06/04/19 14:47 Dose: 3 mg Warfarin Sodium (Coumadin) 2 mg PO ONETIME ONE Stop: 06/05/19 14:01 Last Admin: 06/05/19 14:30 Dose: 2 mg Warfarin Sodium (Coumadin) 2.5 mg PO ONETIME ONE Stop: 06/06/19 14:01 Last Admin: 06/06/19 14:17 Dose: 2.5 mg Warfarin Sodium (Coumadin) 2 mg PO ONETIME ONE Stop: 06/07/19 14:01 Last Admin: 06/07/19 14:43 Dose: 2 mg
[2019-06-08] MEDS ORDERED: predniSONE 20 MG Tab PO SCH (08:00)
== END 2019-06-07 18:30 | DRG 871 ==
LOC: UNDOADMIN 11:12 → DL.MS 11:12
PROVIDERS: ADMIT Internal Medicine; ATTEND Student in an Organized Health Care Education/Training Program
DX: A41.01 Sepsis due to Methicillin susceptible Staphylococcus aureus (principal); I33.0 Acute and subacute infective endocarditis; G06.2 Extradural and subdural abscess, unspecified; J96.01 Acute respiratory failure with hypoxia; I50.23 Acute on chronic systolic (congestive) heart failure; I42.9 Cardiomyopathy, unspecified; E87.1 Hypo-osmolality and hyponatremia; M46.24 Osteomyelitis of vertebra, thoracic region; H54.7 Unspecified visual loss; E78.00 Pure hypercholesterolemia, unspecified; G89.29 Other chronic pain; M54.5 Low back pain; F41.9 Anxiety disorder, unspecified; F32.9 Major depressive disorder, single episode, unspecified; I11.0 Hypertensive heart disease with heart failure; I48.91 Unspecified atrial fibrillation; R53.1 Weakness; I77.6 Arteritis, unspecified; Z87.891 Personal history of nicotine dependence; Z79.82 Long term (current) use of aspirin; Z79.01 Long term (current) use of anticoagulants; Z79.899 Other long term (current) drug therapy
CPT/HCPCS: 36415; 51702; 80048; 82550; 84460; 85025; 85610; 85651; 86140; 97110-GO; 97110-GP; 97116-GP; 97162-GP; 97166-GO; 97530-GO; A9270-GY; J0690; J0878; J1940; J2930; J7050

== ENCOUNTER 2019-09-27 18:08 | Emergency (ER) | payer MEDICARE, OTHER ==
[2019-09-27 18:56] VITALS: BP 125/75; PULSE 69
[2019-09-27] MEDS: Diphtheria,Pertussis(Acell),Tetanus Vaccine 0.5 ML SDV IM ONE (19:12)
--- NOTE | 2019-09-27 19:21 | EDM.PDOC ---
ED HPI GENERAL MEDICAL PROBLEM - General Chief Complaint: Laceration Stated Complaint: LACERATION ON HAND Time Seen by Provider: 09/27/19 19:21 Source of Information: Reports: Patient, RN, RN Notes Reviewed History Limitations: Reports: No Limitations - History of Present Illness INITIAL COMMENTS - FREE TEXT/NARRATIVE: Presents to ER with complaint of laceration to the thumb. Patient states he was grinding a bolt when it got away from him. Patient states he knows he is taken a tetanus shot in the past 10 years but is unsure when that was. Any further complaints. Onset: Today, Sudden Back Pain Score (Numeric/FACES): 9 - Related Data Allergies Allergy/AdvReac Type Severity Reaction Status Date / Time No Known Allergies Allergy Verified 07/29/19 13:42 Home Meds: Home Meds Acetaminophen 1,000 mg PO Q6HR 09/01/16 [History] Allopurinol [Zyloprim] 300 mg PO DAILY 09/01/16 [History] Venlafaxine [Effexor XR] 150 mg PO BID 09/01/16 [History] traZODone HCl [Trazodone HCl] 100 mg PO BEDTIME 09/01/16 [History] Amiodarone [Cordarone] 200 mg PO DAILY 05/31/19 [History] Nitroglycerin [Nitrostat] 0.3 mg SL ASDIRECTED 05/31/19 [History] Olopatadine [Pataday 0.2% Ophth Soln] 1 drop EYEBOTH DAILY 05/31/19 [History] Omeprazole 20 mg PO BID 05/31/19 [History] Spironolactone [Aldactone] 25 mg PO DAILY 05/31/19 [History] Warfarin Sodium [Jantoven] 5 mg PO .EVERY OTHER DAY 05/31/19 [History] carvediloL [Coreg] 25 mg PO BID 05/31/19 [History] diphenhydrAMINE [Benadryl] 25 mg PO DAILY PRN 05/31/19 [History] Acetaminophen/oxyCODONE [Percocet 325-5 MG] 1 tab PO BID PRN 07/29/19 [History] Aspirin [Ecotrin EC] 81 mg PO DAILY 07/29/19 [History] Bumetanide [Bumex] 1 mg PO WITHDINNER 04/04/20 [History] Bumetanide [Bumex] 2 mg PO QAM 07/29/19 [History] Gabapentin [Neurontin] 100 mg PO TID 07/29/19 [History] Past Medical History HEENT History: Reports: Impaired Vision Cardiovascular History: Reports: Arrhythmia, Heart Murmur, High Cholesterol, Hypertension, Other (See Below) Other Cardiovascular History: was told her needed to have a stress test 2017 but had not completed Respiratory History: Reports: None Gastrointestinal History: Reports: Bowel Obstruction Musculoskeletal History: Reports: Back Pain, Chronic, Other (See Below) Other Musculoskeletal History: lower back pain, right shoulder pain Psychiatric History: Reports: Anxiety, Depression Dermatologic History: Reports: Psoriasis - Infectious Disease History Infectious Disease History: Reports: MRSA Other Infectious Disease History: MSSA - Past Surgical History GI Surgical History: Reports: None Social & Family History - Family History Family Medical History: Noncontributory - Tobacco Use Smoking Status *Q: Never Smoker Second Hand Smoke Exposure: No - Caffeine Use Caffeine Use: Reports: Coffee - Recreational Drug Use Recreational Drug Use: No ED ROS GENERAL - Review of Systems Review Of Systems: Comprehensive ROS is negative, except as noted in HPI. ED EXAM, SKIN/RASH Exam: See Below Exam Limited By: No Limitations General Appearance: Alert, WD/WN, No Apparent Distress Eye Exam: Bilateral Eye: EOMI, Normal Inspection Ears: Normal External Exam, Hearing Grossly Normal Nose: Normal Inspection Throat/Mouth: Normal Inspection, Normal Voice, No Airway Compromise Head: Atraumatic, Normocephalic Neck: Normal Inspection, Supple, Non-Tender, Full Range of Motion Respiratory/Chest: No Respiratory Distress, Lungs Clear, Normal Breath Sounds, No Accessory Muscle Use, Chest Non-Tender Cardiovascular: Normal Peripheral Pulses, Regular Rate, Rhythm, No Edema, No Gallop, No JVD, No Murmur, No Rub Peripheral Pulses: 2+: Radial (L), Radial (R) GI/Abdominal: Normal Bowel Sounds, Soft, Non-Tender (Male) Exam: Deferred Rectal (Males) Exam: Deferred Back Exam: Normal Inspection, Full Range of Motion, NT Extremities: Normal Inspection, Normal Range of Motion, Non-Tender, No Pedal Edema, Normal Capillary Refill Neurological: Alert, Oriented, CN II-XII Intact, Normal Cognition, Normal Gait, Normal Reflexes, No Motor/Sensory Deficits Psychiatric: Normal Affect, Normal Mood Skin: Warm, Dry, Other (2 cm laceration to the left thumb, dorsal aspect) Location, Skin: Upper Extremity, Left Lymphatic: No Adenopathy ED SKIN PROCEDURES - Laceration/Wound Repair Left Medial Dorsal Digit - 1st (Thumb) Appearance: Superficial Distal NVT: Neuro & Vascular Intact Anesthetic Type: Local Local Anesthesia - Lidocaine (Xylocaine): 1% Plain Local Anesthetic Volume: 3cc Skin Prep: Chlorhexidine (Hibiciens) Exploration/Debridement/Repair: Wound Explored, In a Bloodless Field, Explored to Base, No Foreign Material Found Closed with: Sutures Lac/Wound length In cm: 2 Suture Size: 4-0 # of Sutures: 3 Suture Type: Nylon, Interrupted Drain Placement: No Sterile Dressing Applied: Nurse Tetanus Status Addressed: Yes Complications: No Course - Vital Signs Last Recorded V/S: Last Vital Signs Temp 98.3 F 09/27/19 18:50 Pulse 69 09/27/19 18:50 Resp 18 09/27/19 18:50 BP 125/75 09/27/19 18:50 Pulse Ox 96 09/27/19 18:50 - Orders/Labs/Meds Orders: Active Orders 24 hr Category Date Time Status Vaccines to be Administered [RC] PER UNIT ROUTINE Care 09/27/19 19:04 Active Meds: Medications Discontinued Medications Generic Name Dose Route Start Last Admin Trade Name Foreign PRN Reason Stop Dose Admin Bacitracin 1 dose 09/27/19 19:04 09/27/19 19:30 Bacitracin Oint 1 Gm TOP 09/27/19 19:05 1 dose ONETIME ONE Administration Diphtheria/Tetanus/Acell Pertussis 0.5 ml 09/27/19 19:04 09/27/19 19:12 Adacel IM 09/27/19 19:05 0.5 ml .ONCE ONE Administration Lidocaine HCl 30 ml 09/27/19 19:04 09/27/19 19:30 Xylocaine-Mpf 1% INJECT 09/27/19 19:05 30 ml ONETIME ONE Administration Departure - Departure Time of Disposition: 19:40 Disposition: Home, Self-Care 01 Condition: Good Clinical Impression: Laceration - Discharge Information *PRESCRIPTION DRUG MONITORING PROGRAM REVIEWED*: No *COPY OF PRESCRIPTION DRUG MONITORING REPORT IN PATIENT STEPHANIE: No Instructions: Laceration Care, Adult, [id number], Sutures, [place], or Adhesive Wound Closure, [id number] Forms: ED Department Discharge Additional Instructions: Keep area clean and dry Follow up with your primary care facility in 7-10 days to have sutures removed Monitor for signs of infection (redness, warmth, drainage, fever or chills), seek assistance from your primary care facility if you have any of these symptoms Sepsis Event Note - Evaluation Sepsis Screening Result: No Definite Risk - Focused Exam Vital Signs: Vital Signs Temp Pulse Resp BP Pulse Ox 09/27/19 18:50 98.3 F 69 18 125/75 96 Date Exam was Performed: 09/28/19 Time Exam was Performed: 03:32 - My Orders Last 24 Hours: My Active Orders 09/27/19 19:04 Vaccines to be Administered [RC] PER UNIT ROUTINE - Assessment/Plan Last 24 Hours: My Active Orders 09/27/19 19:04 Vaccines to be Administered [RC] PER UNIT ROUTINE
[2019-09-27] MEDS: Bacitracin Oint 1 GM U/D Packet TOP ONE (19:30)
[2019-09-27] MEDS: Lidocaine 1% 30 ML SDV INJECT ONE (19:30)
== END 2019-09-27 19:41 | disposition home or self-care (01) ==
LOC: DL.ED 18:08
DX: S61.012A Laceration without foreign body of left thumb without damage to nail, initial encounter (principal); I10 Essential (primary) hypertension; F41.9 Anxiety disorder, unspecified; F32.9 Major depressive disorder, single episode, unspecified; Z23 Encounter for immunization; Z79.82 Long term (current) use of aspirin; Z79.01 Long term (current) use of anticoagulants; Z79.899 Other long term (current) drug therapy; W31.9XXA Contact with unspecified machinery, initial encounter
CPT/HCPCS: 12001; 90471; 90715; 99282; J2001

== ENCOUNTER → 2019-10-10 | Day surgery (SDC) | payer MEDICARE, SELFPAY ==
[~2019-10-10] MED LIST: Dextrose 5%-0.45% NaCl 1,000 ML IV SCH; Midazolam 1 MG/ML 2 ML SDV IV ONE; Midazolam 1 MG/ML 2 ML SDV ONE; fentaNYL 100 MCG/2 ML SDV IV ONE; fentaNYL 100 MCG/2 ML SDV ONE
--- NOTE | 2019-10-10 08:59 | OR ---
DATE: 10/10/2019 PROCEDURE: Esophagogastroduodenoscopy and multiple pinch biopsies. INSTRUMENT USED: [id number]-HQ190 Olympus video panendoscope. PREMEDICATIONS: No oral or topical anesthesia used. Fentanyl 100 mcg intravenous, Versed 2 mg intravenous. Nasal O2 cannula. The procedure was done under pulse oximetry, BP recording, and cardiac rehabilitation program director. INDICATION: The patient with persistent multiple abdominal symptoms, unexplained and not responsive to medical measures, also found to be anemic. Esophagogastroduodenoscopy is performed for detection of any active erosive lesions, Linda esophagus and/or malignancy also under consideration, H. pylori status to be determined, endoscopic hemostasis therapy if needed. DESCRIPTION OF PROCEDURE: The scope was passed with ease. Adequate visualization of the esophagus was made from proximal to distal areas. No upper esophageal lesions identified. No distal esophageal stricture. No uphill or down hill esophageal varices. No Soha-Lyon tear. No evidence of erosive esophagitis by [place] criteria. No esophageal polyp or tumor mass identified. Z-line was seen at around 39 cm distal to the oral verge, configuration consistent with grade 1 by ZAP classification. No esophageal polyp or tumor mass identified. No proximal gastric varices noted. Gastric fundus examination by retroflexion showed no polypoid lesions. No gastric ulcer, malignant mass, or vascular ectasia identified. Duodenal bulb showed no ulcer. Visualized 2nd part of the duodenum was unremarkable. Multiple pinch biopsies were taken from the gastric antrum and proximal body and sent for PyloriTek test for H. pylori, and if negative in an hour, the tissues to be sent for histopathology. No bleeding was noted from any of the visualized areas at the completion of examination. Photographs were taken of the duodenal bulb, gastric antrum, fundus, and distal esophagus. IMPRESSION: Normal study. The patient tolerated the procedure well. [facility] /[id number]
[2019-10-10 09:56] VITALS: BP 149/87; PULSE 64
== END | disposition home or self-care (01) ==
LOC: DL.ENDO 06:21
PROVIDERS: ATTEND Internal Medicine Gastroenterology
DX: K29.50 Unspecified chronic gastritis without bleeding (principal); I13.0 Hypertensive heart and chronic kidney disease with heart failure and stage 1 through stage 4 chronic kidney disease, or unspecified chronic kidney disease; E78.5 Hyperlipidemia, unspecified; N18.9 Chronic kidney disease, unspecified; I50.9 Heart failure, unspecified; I48.91 Unspecified atrial fibrillation; D53.9 Nutritional anemia, unspecified; D63.1 Anemia in chronic kidney disease; M54.5 Low back pain; M41.9 Scoliosis, unspecified; Z88.8 Allergy status to other drugs, medicaments and biological substances; Z98.52 Vasectomy status; Z98.890 Other specified postprocedural states; Z86.19 Personal history of other infectious and parasitic diseases; Z87.39 Personal history of other diseases of the musculoskeletal system and connective tissue
CPT/HCPCS: 43239; 87077; J7042; 88305; 88342; J2250; J3010

== ENCOUNTER 2019-11-28 06:48 | Day surgery (SDC) | payer MEDICARE ==
[~2019-11-28 06:48] MED LIST changes: -Midazolam 1 MG/ML 2 ML SDV IV ONE; -fentaNYL 100 MCG/2 ML SDV IV ONE
[2019-11-28] MEDS ORDERED: Midazolam 1 MG/ML 2 ML SDV IV ONE ×7 (06:49→07:46)
[2019-11-28] MEDS ORDERED: fentaNYL 100 MCG/2 ML SDV IV ONE ×3 (06:49→07:36)
[2019-11-28 11:22] VITALS: BP 145/75; PULSE 58
--- NOTE | 2019-11-28 15:33 | OR ---
DATE: 11/28/2019 PROCEDURE: Total colonoscopy, NBI, and multiple cold snare polypectomies. INSTRUMENT USED: [id number]-[id number] Olympus video colonoscope. PREMEDICATIONS: Fentanyl 100 mcg intravenous, Versed 4 mg intravenous. Nasal O2 cannula. The procedure was done under pulse oximetry, BP recording, and nuclear monitoring technician. INDICATION: The patient with iron deficiency anemia. Colonoscopic examination is done for detection of any polypoid lesions and removal, endoscopic hemostasis therapy if needed. DESCRIPTION OF PROCEDURE: Initial rectal exam was unremarkable. Rigid anoscopy was normal. Colonoscope was passed with ease. Scattered diverticula were noted in the distal left colon along with some deformity. The scope was passed with ease up to the ileocecal area. Photographs were taken of the cecum showing 1 cm sized benign-appearing sessile polyp, NBI views were obtained, photographs were taken, piecemeal cold snare polypectomy was done, the tissue was retrieved and sent for histopathology. Photographs were taken of the post polypectomy site without any bleeding from it. In the cecum, another diminutive polyp was noted, cold snare polypectomy was done, the tissue was retrieved and sent for histopathology. No bleeding was noted from any of the visualized areas at the commencement of the examination. There was large amount of fecal material that had to be aspirated. Bowel preparation Totz scale 2 in all the areas, total score 6. At the area of hepatic flexure, more than 1 cm sized sessile benign- appearing polyp was noted, NBI views were obtained, also noted in the hepatic flexure area was a 3 mm sized benign-appearing polyp, cold snare polypectomy was done, the tissue was retrieved and sent for histopathology. No stricture. No vascular ectasia. No large isolated ulcerations seen. No evidence of diffuse inflammatory bowel disease in the form of friability, contact bleeding, or ulcerations. Probing the proximal sides of folds and flexures using adequate distention and clearing up the stool material, withdrawal of the scope was made, cecum to rectum time over 6 minutes. No bleeding was noted from any of the visualized areas at the completion of examination. IMPRESSION: 1. Diverticulosis. 2. Multiple colonic polyps. The patient tolerated the procedure well. [facility] /[id number]
[2019-11-29] MEDS ORDERED: Sodium Chloride 0.9% 10 ML Syringe FLUSH PRN (05:30)
== END 2019-11-28 10:21 | disposition home or self-care (01) ==
LOC: DL.ENDO 06:48
PROVIDERS: ATTEND Internal Medicine Gastroenterology
DX: D12.0 Benign neoplasm of cecum (principal); D12.3 Benign neoplasm of transverse colon; K57.30 Diverticulosis of large intestine without perforation or abscess without bleeding; D50.9 Iron deficiency anemia, unspecified; I13.0 Hypertensive heart and chronic kidney disease with heart failure and stage 1 through stage 4 chronic kidney disease, or unspecified chronic kidney disease; N18.9 Chronic kidney disease, unspecified; I50.9 Heart failure, unspecified; Z86.79 Personal history of other diseases of the circulatory system
CPT/HCPCS: 45385; 88305; J2250; J3010; J7042